=== PATIENT | male | born 1990 | race Two or more races ===

== ENCOUNTER 2023-06-26 09:11 | Emergency (ER) | payer MEDICAID, OTHER ==
[~2023-06-26] VITALS: Ht 172.7 cm; Wt 85.0 kg
[2023-06-26 10:12] VITALS: BP 117/61; RESP 16; TEMP 97.2; O2SAT 95
[2023-06-26] MEDS ORDERED: KETOROLAC TROMETH 60MG/2ML VIAL IM ONE (10:30)
[2023-06-26 10:55] VITALS: PULSE 58
[2023-06-26] MEDS ORDERED: IBUP-1456 PO (11:05)
[2023-06-26] MEDS ORDERED: METH-1182 PO (11:05)
== END 2023-06-26 11:12 | disposition home or self-care (01) ==
LOC: ER 09:11
DX: S29.011A Strain of muscle and tendon of front wall of thorax, initial encounter (principal); Y93.B2 Activity, push-ups, pull-ups, sit-ups; Y93.89 Activity, other specified; Y92.89 Other specified places as the place of occurrence of the external cause; Y99.8 Other external cause status
CPT/HCPCS: 71046; 93005; 96372; 99284; J1885